=== PATIENT | male | born 1935 | race African-American/Black ===

== ENCOUNTER 2023-11-28 12:33 | Emergency (ER) | payer OTHER ==
[2023-11-28 12:43] VITALS: BP 147/97; PULSE 74; RESP 16; TEMP 97.6; BMI 32.9
[2023-11-28] MEDS ORDERED: KETOROLAC TROMETHAMINE 30 MG/1 ML VIAL ONE (15:13)
[2023-11-28] MEDS: KETOROLAC TROMETHAMINE 30 MG/1 ML VIAL IM ONE (15:18)
[2023-11-28 17:00] LABS: BASO % 0.7 % (0-2.0); EOS % 3.7 % (0-4.5); HEMATOCRIT 37.8 % (35.4-49); HEMOGLOBIN 12.5 GM/dL (11.7-16.9); LYMPH % 32.2 % (8-40); MCH 27.9 pg (25.7-33.7); MCHC 33.2 g/dl (32.0-35.9); MEAN PLT VOLUME 8.3 fl (7.5-11.1); MONO % 9.8 % (3.8-10.2); NEUT % 53.6 % (42.8-82.8); PLATELET COUNT 159 10^3/uL (134-434); RDW 16.4 % (11.9-15.9); WHITE BLOOD COUNT 8.5 K/mm3 (4.0-10.0)
[2023-11-28 17:03] LABS: INR 1.43 (0.83-1.09); PROTHROMBIN TIME (PATIENT) 16.3 SEC (9.7-13.0)
[2023-11-28 17:05] LABS: ACTIVATED PTT 31.7 SECONDS (25.2-36.5)
== END 2023-11-28 18:09 | disposition home or self-care (01) ==
LOC: JER 12:33
PROC: 3E0233Z Introduction of Anti-inflammatory into Muscle, Percutaneous Approach (ICD-10-PCS; principal; 2023-11-28)
DX: S82.001A Unspecified fracture of right patella, initial encounter for closed fracture (principal); M25.461 Effusion, right knee; R06.02 Shortness of breath; W01.0XXA Fall on same level from slipping, tripping and stumbling without subsequent striking against object, initial encounter
CPT/HCPCS: 36415; 71046-TC-FY; 73562-TC-RT-FY; 84484; 85025; 85610; 85730; 99284-25

== ENCOUNTER 2023-11-30 21:46 | Emergency (ER) | payer OTHER ==
[2023-11-30] MEDS ORDERED: FACTOR XA,INACTIVATED - BOLUS 400 MG/40 ML VIAL IVPB ONE (22:36)
[2023-11-30] MEDS ORDERED: FACTOR XA,INACTIVATED-ZHZO 480 MG/48 ML VIAL IVPB ONE (23:02)
[2023-11-30 23:12] VITALS: TEMP 98.8; BMI 30.9
[2023-11-30] MEDS: LABETALOL HCL 5 MG/1 ML (100MG/20 ML VIAL) IVPUSH ONE (23:29)
[2023-11-30 23:31] LABS: BASO % 0.2 % (0-2.0); EOS % 0.1 % (0-4.5); HEMATOCRIT 34.9 % (35.4-49); HEMOGLOBIN 11.9 GM/dL (11.7-16.9); LYMPH % 10.3 % (8-40); MCH 27.9 pg (25.7-33.7); MEAN PLT VOLUME 8.5 fl (7.5-11.1); MONO % 3.2 % (3.8-10.2); NEUT % 86.2 % (42.8-82.8); PLATELET COUNT 180 10^3/uL (134-434); RBC 4.26 M/mm3 (4.00-5.60); RDW 16.2 % (11.9-15.9); WHITE BLOOD COUNT 8.7 K/mm3 (4.0-10.0)
[2023-11-30 23:38] LABS: INR 1.6 (0.83-1.09); PROTHROMBIN TIME (PATIENT) 18.2 SEC (9.7-13.0)
[2023-11-30 23:40] LABS: ACTIVATED PTT 31.7 SECONDS (25.2-36.5)
[2023-11-30] MEDS: SODIUM CHLORIDE 1,000 ML IV SCH (23:45)
[2023-11-30] MEDS: SODIUM CHLORIDE 50 ML IVPB ONE (23:45)
[2023-11-30 23:53] VITALS: RESP 20
[2023-11-30] MEDS ORDERED: LABETALOL HCL 20 MG/4 ML VIAL ONE (23:59)
[2023-12-01] MEDS: LABETALOL HCL 5 MG/1 ML (100MG/20 ML VIAL) IVPUSH ONE (00:08)
[2023-12-01 00:09] LABS: POTASSIUM 4.7 mmol/L (3.5-5.1)
[2023-12-01 00:10] LABS: CALCIUM 8.9 mg/dL (8.5-10.1)
[2023-12-01 00:11] LABS: ALBUMIN 3.2 g/dl (3.4-5.0)
[2023-12-01 00:14] LABS: CREATININE 2.1 mg/dL (0.55-1.3)
[2023-12-01 00:16] LABS: TOT PROT 6.4 g/dl (6.4-8.2)
[2023-12-01 00:27] VITALS: BP 157/95; PULSE 111
[2023-12-01 00:30] LABS: BLOOD UREA NITROGEN 21.8 mg/dL (7-18)
[2023-12-01] MEDS ORDERED: SODIUM CHLORIDE 50 ML IVPB ONE (00:37)
== END 2023-12-01 00:28 | disposition short-term general hospital (02) ==
LOC: JER 21:46
PROC: 3E033GC Introduction of Other Therapeutic Substance into Peripheral Vein, Percutaneous Approach (ICD-10-PCS; principal; 2023-11-30)
DX: I63.89 Other cerebral infarction (principal); R29.708 NIHSS score 8; R32 Unspecified urinary incontinence; R41.82 Altered mental status, unspecified; I10 Essential (primary) hypertension; Z20.822 Contact with and (suspected) exposure to COVID-19
CPT/HCPCS: 0241U-QW; 36415; 70450-TC; 71045-TC-FY; 80053; 80061; 82550; 82962; 83036; 84484; 85025; 85610; 85730; 86850; 86900; 86901; 93005; 93010; 99291

== ENCOUNTER 2023-12-14 14:44 | Emergency (ER) | payer OTHER ==
[2023-12-14] MEDS ORDERED: RAPID SEQUENCE INTUBATION KIT NR ONE (14:52)
[2023-12-14] MEDS ORDERED: ALBUTEROL SO4 2.5/IPRATROPIUM 0.5 INH SOL 3 ML VIAL.NEB. NEB ONE (14:53)
[2023-12-14] MEDS ORDERED: ROCURONIUM BROMIDE 50 MG/5 ML VIAL ONE (14:54)
[2023-12-14] MEDS ORDERED: KETAMINE HCL 200 MG/20 ML VIAL ONE (14:54)
[2023-12-14] MEDS: SODIUM CHLORIDE 1,000 ML IV STA (15:00)
[2023-12-14] MEDS: KETAMINE HCL 200 MG/20 ML VIAL IVPUSH ONE (15:06)
[2023-12-14] MEDS: ROCURONIUM BROMIDE 50 MG/5 ML VIAL IVPUSH ONE (15:07)
[2023-12-14] MEDS: ALBUTEROL SO4 2.5/IPRATROPIUM 0.5 INH SOL 3 ML VIAL.NEB. NEB SCH (15:20)
[2023-12-14] MEDS ORDERED: NOREPINEPHRINE 0.9 % NACL 8 MG/250 ML BAG IVPB ONE (15:32)
[2023-12-14] MEDS: NOREPINEPHRINE BITARTRATE 16,000 MCG in SODIUM CHLORIDE 484 ML IV SCH (15:35)
[2023-12-14] MEDS: VASopressin 40 UNITS/100 ML BAG IV SCH (15:38)
[2023-12-14] MEDS ORDERED: VASopressin 20 UNITS/ML VIAL IV ONE ×2 (15:45→15:47)
[2023-12-14 16:12] VITALS: BMI 30.9
[2023-12-14 17:55] LABS: HEMOGLOBIN 9.3 GM/dL (11.7-16.9); MCH 27.3 pg (25.7-33.7); MCHC 33.1 g/dl (32.0-35.9); MEAN CELL VOLUME 82.4 fl (80-96); MEAN PLT VOLUME 8.1 fl (7.5-11.1); PLATELET COUNT 192 10^3/uL (134-434); RBC 3.39 M/mm3 (4.00-5.60); RDW 16.5 % (11.9-15.9); WHITE BLOOD COUNT 15.2 K/mm3 (4.0-10.0)
[2023-12-14 18:08] LABS: INR 1.22 (0.83-1.09)
[2023-12-14 18:11] LABS: ACTIVATED PTT 36.2 SECONDS (25.2-36.5)
[2023-12-14 18:17] LABS: POTASSIUM 4.5 mmol/L (3.5-5.1)
[2023-12-14 18:18] LABS: CALCIUM 7.7 mg/dL (8.5-10.1)
[2023-12-14 18:19] LABS: BLOOD UREA NITROGEN 39.9 mg/dL (7-18); MAGNESIUM 2.1 mg/dL (1.8-2.4)
[2023-12-14 18:22] LABS: CREATININE 1.1 mg/dL (0.55-1.3)
[2023-12-14 18:25] LABS: BILIRUBIN,TOTAL 1.4 mg/dL (0.2-1)
[2023-12-14 18:32] LABS: TOT PROT 4.4 g/dl (6.4-8.2)
[2023-12-14 18:34] LABS: ANISOCYTOSIS 0; MACROCYTOSIS 0; PLATELET ESTIMATE ADEQUATE
[2023-12-14 18:35] LABS: EPI CELLS 4 /uL (0-25.1); HYALINE CASTS 0 /uL (0-3.1); PH,URINE 5.5 (5.0-8.0); URINE APPEARANCE CLOUDY; URINE BACTERIA >9,000 /uL (0-1359); URINE BILIRUBIN NEGATIVE (NEGATIVE); URINE COLOR DK YELLOW; URINE GLUCOSE (UA) NEGATIVE (NEGATIVE); URINE KETONE NEGATIVE (NEGATIVE); URINE LEUK ESTERASE 3+ (NEGATIVE); URINE NITRITE NEGATIVE (NEGATIVE); URINE PROTEIN 1+ (NEGATIVE); URINE WBC 1283 /uL (0-25.8)
[2023-12-14 18:43] LABS: URINE RBC 15 /uL (0-23.9)
[2023-12-14] MEDS: FENTANYL IVPB 500 MCG/100 ML BAG IVPB SCH (19:00)
[2023-12-14] MEDS: MIDAZOLAM IN 0.9 % SOD.CHLORID 100 MG/100 ML PLAST..BAG IVPB SCH (19:01)
[2023-12-14] MEDS ORDERED: PIPERACILLIN/TAZOB 4.5 GM 4.5 GM/100 ML BAG IVPB ONE (19:36)
[2023-12-14] MEDS: PIPERACILLIN/TAZOB 4.5 GM 4.5 GM in DEXTROSE 5%-WATER 100 ML IVPB ONE (19:40)
[2023-12-14] MEDS ORDERED: NOREPINEPHRINE BITARTRATE/D5W 8 MG/250 ML BAG IVPB ONE (20:38)
[2023-12-14] MEDS: NOREPINEPHRINE 0.9 % NACL 8 MG/250 ML BAG IVPB SCH (20:47)
[2023-12-14] MEDS: VANCOMYCIN 1,000 MG in DEXTROSE 5%-WATER - 250 ML IVPB ONE (20:47)
[2023-12-14 21:33] LABS: ALLENS TEST POSITIVE; ARTERIAL BLD GAS O2 SATURATION 99.9 % (95-98); ARTERIAL BLOOD GAS BASE EXCESS -0.7 mmol/L (-2-2); ARTERIAL BLOOD GAS PO2 498.5 mmHg (80-100); ARTERIAL BLOOD GAS pH 7.571 (7.350-7.450)
[2023-12-14 21:34] LABS: VENT MODE AC; VENT RATE 20
[2023-12-14] MEDS ORDERED: VANCOMYCIN 1 GRAM (PRE-DOCKED) 1,000 MG/250 ML BAG IVPB ONE (22:29)
[2023-12-14 22:43] VITALS: PULSE 58
[2023-12-15] MEDS: FENTANYL IVPB 500 MCG/100 ML BAG IVPB SCH (00:10)
[2023-12-15 00:41] VITALS: BP 114/74; RESP 20; TEMP 98
== END 2023-12-15 01:27 | disposition short-term general hospital (02) ==
LOC: JER 14:44 → UNDOADMOB 16:27 → JERBED 16:27 → JICU 19:32 → JERBED 20:34
PROC: 0BH17EZ Insertion of Endotracheal Airway into Trachea, Via Natural or Artificial Opening (ICD-10-PCS; principal; 2023-12-14)
PROC: 3E03329 Introduction of Other Anti-infective into Peripheral Vein, Percutaneous Approach (ICD-10-PCS; 2023-12-14)
PROC: 3E033GC Introduction of Other Therapeutic Substance into Peripheral Vein, Percutaneous Approach (ICD-10-PCS; 2023-12-14)
PROC: 3E033GC Introduction of Other Therapeutic Substance into Peripheral Vein, Percutaneous Approach (ICD-10-PCS; 2023-12-14)
PROC: 3E0337Z Introduction of Electrolytic and Water Balance Substance into Peripheral Vein, Percutaneous Approach (ICD-10-PCS; 2023-12-14)
DX: R06.03 Acute respiratory distress (principal)
CPT/HCPCS: 0241U-QW; 36415; 36600; 70450-TC; 71045-TC-FY; 80053; 81003; 82803; 82962; 83605; 83735; 84484; 85025; 85610; 85730; 86850; 86900; 86901; 87040; 93005; 93010; 99285-25; J3490

== ENCOUNTER 2023-12-20 11:40 | Inpatient (IN) | payer OTHER ==
[2023-12-20 15:01] LABS: POTASSIUM 4.5 mmol/L (3.5-5.1)
[2023-12-20 15:03] LABS: ALBUMIN 2.2 g/dl (3.4-5.0); BLOOD UREA NITROGEN 52.1 mg/dL (7-18); CALCIUM 8.5 mg/dL (8.5-10.1)
[2023-12-20 15:06] LABS: CREATININE 1.5 mg/dL (0.55-1.3)
[2023-12-20 15:08] LABS: BILIRUBIN,TOTAL 1.1 mg/dL (0.2-1); TOT PROT 5.2 g/dl (6.4-8.2)
[2023-12-20 15:32] LABS: VENOUS BASE EXCESS -1.3 mmol/L (-2-2); VENOUS O2 SATURATION 48.1 % (70-80); VENOUS PCO2 40.2 mmHg (38-52); VENOUS PH 7.387 (7.310-7.410)
[2023-12-20 15:34] LABS: BASO % 0.3 % (0-2.0); EOS % 2.1 % (0-4.5); HEMOGLOBIN 9.3 GM/dL (11.7-16.9); LYMPH % 11.6 % (8-40); MCHC 33.4 g/dl (32.0-35.9); MEAN PLT VOLUME 9.5 fl (7.5-11.1); MONO % 6.2 % (3.8-10.2); NEUT % 79.8 % (42.8-82.8); PLATELET COUNT 181 10^3/uL (134-434); RBC 3.33 M/mm3 (4.00-5.60); RDW 17.4 % (11.9-15.9); WHITE BLOOD COUNT 10.6 K/mm3 (4.0-10.0)
[2023-12-20 15:41] LABS: INR 1.24 (0.83-1.09); PROTHROMBIN TIME (PATIENT) 14.2 SEC (9.7-13.0)
[2023-12-20] MEDS ORDERED: PIPERACILLIN/TAZOB 4.5 GM 4.5 GM/100 ML BAG IVPB ONE (19:23)
[2023-12-20] MEDS: PIPERACILLIN/TAZOB 4.5 GM 4.5 GM in DEXTROSE 5%-WATER 100 ML IVPB ONE (19:30)
[2023-12-20] MEDS: SODIUM CHLORIDE 0.9% 500 ML INFUS.BAG IV ONE (19:30)
[2023-12-20] MEDS: VANCOMYCIN 1,000 MG in DEXTROSE 5%-WATER - 250 ML IVPB ONE (20:14)
[2023-12-20] MEDS ORDERED: AZITHROMYCIN IVPB 500 MG/250 ML BAG IVPB ONE (20:16)
[2023-12-20] MEDS: AZITHROMYCIN IVPB 500 MG in DEXTROSE 5%-WATER - 250 ML IVPB ONE (20:33)
[2023-12-20] MEDS ORDERED: VANCOMYCIN 1 GRAM (PRE-DOCKED) 1,000 MG/250 ML BAG IVPB ONE (21:02)
[2023-12-20] MEDS ORDERED: ALBUTEROL SO4 2.5/IPRATROPIUM 0.5 INH SOL 3 ML VIAL.NEB. NEB ONE (23:15)
[2023-12-20] MEDS: ALBUTEROL SO4 2.5/IPRATROPIUM 0.5 INH SOL 3 ML VIAL.NEB. NEB ONE (23:19)
[2023-12-21 00:47] VITALS: BMI 32.8
[2023-12-21] MEDS: SODIUM CHLORIDE 1,000 ML IV SCH (01:13)
[2023-12-21] MEDS: PANTOPRAZOLE SODIUM 40 MG VIAL IVPUSH SCH (09:52)
[2023-12-21 14:26] LABS: BASO % 0.2 % (0-2.0); EOS % 1.8 % (0-4.5); HEMATOCRIT 25.5 % (35.4-49); HEMOGLOBIN 8.6 GM/dL (11.7-16.9); LYMPH % 10.6 % (8-40); MCH 28.1 pg (25.7-33.7); MCHC 33.6 g/dl (32.0-35.9); MEAN CELL VOLUME 83.7 fl (80-96); MEAN PLT VOLUME 8.3 fl (7.5-11.1); MONO % 5.7 % (3.8-10.2); NEUT % 81.7 % (42.8-82.8); PLATELET COUNT 147 10^3/uL (134-434); RBC 3.05 M/mm3 (4.00-5.60); RDW 17.5 % (11.9-15.9); WHITE BLOOD COUNT 10.7 K/mm3 (4.0-10.0)
[2023-12-21 15:01] LABS: POTASSIUM 4.3 mmol/L (3.5-5.1)
[2023-12-21 15:02] LABS: CALCIUM 8.4 mg/dL (8.5-10.1)
[2023-12-21 15:03] LABS: BLOOD UREA NITROGEN 45.4 mg/dL (7-18)
[2023-12-21 15:06] LABS: CREATININE 1.5 mg/dL (0.55-1.3)
[2023-12-21] MEDS: CEFTRIAXONE 1 GM in DEXTROSE 5%-WATER - 50 ML IVPB SCH (16:48)
[2023-12-21 18:26] LABS: ARTERIAL BLD GAS O2 SATURATION 99.3 % (95-98); ARTERIAL BLOOD GAS BASE EXCESS -3.2 mmol/L (-2-2); ARTERIAL BLOOD GAS PO2 192.6 mmHg (80-100); ARTERIAL BLOOD GAS pH 7.409 (7.350-7.450)
[2023-12-21 18:29] LABS: ALLENS TEST POSITIVE
[2023-12-23 07:54] LABS: CALCIUM 8.6 mg/dL (8.5-10.1)
[2023-12-23 07:55] LABS: BLOOD UREA NITROGEN 41.8 mg/dL (7-18)
[2023-12-23 07:58] LABS: CREATININE 1.3 mg/dL (0.55-1.3)
[2023-12-24] MEDS: amLODIPine BESYLATE 5 MG TABLET (FP) GT SCH (10:01)
[2023-12-24] MEDS: ALBUTEROL SO4 2.5/IPRATROPIUM 0.5 INH SOL 3 ML VIAL.NEB. NEB PRN (11:28)
[2023-12-24] MEDS: SCOPOLAMINE HYDROBROMIDE 1 PATCH PATCH.TD72 TD SCH (13:18)
[2023-12-24] MEDS: SODIUM ZIRCONIUM CYCLOSILICATE (LOKELMA) 5 GM PACKET PO SCH (13:19)
[2023-12-25 09:04] LABS: POTASSIUM 3.9 mmol/L (3.5-5.1)
[2023-12-25 09:06] LABS: BLOOD UREA NITROGEN 35.4 mg/dL (7-18); CALCIUM 8.5 mg/dL (8.5-10.1)
[2023-12-25 09:11] LABS: CREATININE 1.5 mg/dL (0.55-1.3)
[2023-12-25] MEDS: METOCLOPRAMIDE HCL 10 MG TABLET (FP) PO SCH (18:27)
[2023-12-26 08:27] LABS: BASO % 0.3 % (0-2.0); EOS % 4.1 % (0-4.5); HEMATOCRIT 25.5 % (35.4-49); HEMOGLOBIN 8.6 GM/dL (11.7-16.9); LYMPH % 15.2 % (8-40); MCH 28.3 pg (25.7-33.7); MCHC 33.6 g/dl (32.0-35.9); MEAN CELL VOLUME 84.5 fl (80-96); MEAN PLT VOLUME 8.6 fl (7.5-11.1); MONO % 8.4 % (3.8-10.2); PLATELET COUNT 165 10^3/uL (134-434); RBC 3.02 M/mm3 (4.00-5.60); RDW 18.9 % (11.9-15.9); WHITE BLOOD COUNT 8.2 K/mm3 (4.0-10.0)
[2023-12-26 08:39] LABS: POTASSIUM 4.3 mmol/L (3.5-5.1)
[2023-12-26 08:44] LABS: BLOOD UREA NITROGEN 33.6 mg/dL (7-18); CALCIUM 8.6 mg/dL (8.5-10.1)
[2023-12-26 08:47] LABS: CREATININE 1.4 mg/dL (0.55-1.3)
[2023-12-26] MEDS: amLODIPine BESYLATE 10 MG TABLET (FP) GT SCH (10:59)
[2023-12-30] MEDS: FAMOTIDINE 40 MG/5 ML ORAL SUSPENSION GT SCH (22:25)
[2023-12-31 08:12] LABS: POTASSIUM 4.3 mmol/L (3.5-5.1)
[2023-12-31 08:16] LABS: BLOOD UREA NITROGEN 32.7 mg/dL (7-18); CALCIUM 9.1 mg/dL (8.5-10.1)
[2023-12-31 08:19] LABS: CREATININE 1.5 mg/dL (0.55-1.3)
[2023-12-31] MEDS: FAMOTIDINE 20 MG/2.5 ML ORAL LIQUID GT SCH (10:19)
[2024-01-01] MEDS: FAMOTIDINE 20 MG/2.5 ML ORAL LIQUID GT SCH (22:40)
[2024-01-02] MEDS: METOCLOPRAMIDE HCL 10 MG TABLET (FP) PO SCH (06:30)
[2024-01-02 09:20] LABS: POTASSIUM 4.4 mmol/L (3.5-5.1)
[2024-01-02 09:22] LABS: CALCIUM 8.7 mg/dL (8.5-10.1)
[2024-01-02 09:26] LABS: CREATININE 1.2 mg/dL (0.55-1.3)
[2024-01-02] MEDS: amLODIPine BESYLATE 10 MG TABLET (FP) GT SCH (10:19)
[2024-01-02] MEDS: MULTIVIT-MINERALS ORAL LIQUID PO SCH (10:20)
[2024-01-02] MEDS: SCOPOLAMINE HYDROBROMIDE 1 PATCH PATCH.TD72 TD SCH (13:08)
[2024-01-03 10:12] LABS: HEMATOCRIT 24.4 % (35.4-49); HEMOGLOBIN 8.1 GM/dL (11.7-16.9); MCH 28.4 pg (25.7-33.7); MCHC 33.3 g/dl (32.0-35.9); MEAN CELL VOLUME 85.2 fl (80-96); MEAN PLT VOLUME 9.1 fl (7.5-11.1); PLATELET COUNT 173 10^3/uL (134-434); RBC 2.86 M/mm3 (4.00-5.60); RDW 18.7 % (11.9-15.9); WHITE BLOOD COUNT 5.5 K/mm3 (4.0-10.0)
[2024-01-03 10:20] LABS: POTASSIUM 4.6 mmol/L (3.5-5.1)
[2024-01-03 10:21] LABS: CALCIUM 8.7 mg/dL (8.5-10.1)
[2024-01-03 10:22] LABS: BLOOD UREA NITROGEN 25.9 mg/dL (7-18)
[2024-01-03 10:25] LABS: CREATININE 1.1 mg/dL (0.55-1.3)
[2024-01-05] MEDS: methylPREDNISolone NA SUCC 40 MG/1 ML VIAL IVPUSH ONE ×2 (12:53→18:51)
[2024-01-05] MEDS: ALBUTEROL SO4 2.5/IPRATROPIUM 0.5 INH SOL 3 ML VIAL.NEB. NEB PRN (13:00)
[2024-01-05] MEDS: predniSONE 20 MG TABLET (UD) GT ONE (14:20)
[2024-01-05] MEDS ORDERED: ACETAMINOPHEN 1000 MG/100 ML BAG IVPB PRN (18:42)
[2024-01-05] MEDS: FUROSEMIDE 40 MG/4 ML INJECTABLE VIAL IVPUSH ONE (18:51)
[2024-01-05] MEDS: HEPARIN NA (PORCINE) 5,000 UNITS/ML 1ML VIAL SQ SCH (21:30)
[2024-01-05] MEDS: methylPREDNISolone NA SUCC 40 MG/1 ML VIAL IVPUSH SCH (22:16)
[2024-01-06] MEDS: FUROSEMIDE 40 MG/4 ML INJECTABLE VIAL IVPUSH ONE (07:14)
[2024-01-06 08:31] LABS: BASO % 0.1 % (0-2.0); HEMOGLOBIN 8.7 GM/dL (11.7-16.9); LYMPH % 12.8 % (8-40); MCH 27.8 pg (25.7-33.7); MCHC 33.3 g/dl (32.0-35.9); MEAN CELL VOLUME 83.4 fl (80-96); MEAN PLT VOLUME 8.6 fl (7.5-11.1); MONO % 0.8 % (3.8-10.2); NEUT % 86.3 % (42.8-82.8); PLATELET COUNT 250 10^3/uL (134-434); RBC 3.12 M/mm3 (4.00-5.60); RDW 18.6 % (11.9-15.9); WHITE BLOOD COUNT 6.3 K/mm3 (4.0-10.0)
[2024-01-06 08:47] LABS: POTASSIUM 4.4 mmol/L (3.5-5.1)
[2024-01-06 08:50] LABS: CALCIUM 8.9 mg/dL (8.5-10.1)
[2024-01-06 08:51] LABS: ALBUMIN 2.6 g/dl (3.4-5.0); BLOOD UREA NITROGEN 32.1 mg/dL (7-18); MAGNESIUM 1.9 mg/dL (1.8-2.4)
[2024-01-06 08:54] LABS: CREATININE 1.4 mg/dL (0.55-1.3)
[2024-01-06 08:56] LABS: BILIRUBIN,TOTAL 1.8 mg/dL (0.2-1); TOT PROT 6.2 g/dl (6.4-8.2)
[2024-01-06 08:58] LABS: N-TERMINAL BNP 5989.6 pg/ml (5-450)
[2024-01-06] MEDS: HEPARIN NA (PORCINE) 5,000 UNITS/ML 1ML VIAL SQ SCH (10:15)
[2024-01-06] MEDS: methylPREDNISolone NA SUCC 40 MG/1 ML VIAL IVPUSH SCH (21:34)
[2024-01-07] MEDS: FUROSEMIDE 40 MG/4 ML INJECTABLE VIAL IVPUSH SCH (09:46)
[2024-01-07 15:51] VITALS: RESP 18
[2024-01-07] MEDS: INSULIN ASPART SLIDING SCALE (NOVOLOG) 1 VIAL SQ SCH (17:59)
[2024-01-07 21:29] VITALS: TEMP 96.8
[2024-01-08 05:37] VITALS: BP 119/56; PULSE 115
[2024-01-08 14:04] LABS: HEMATOCRIT 29.5 % (35.4-49); HEMOGLOBIN 9.7 GM/dL (11.7-16.9); LYMPH % 9.9 % (8-40); MCH 27.3 pg (25.7-33.7); MEAN CELL VOLUME 82.8 fl (80-96); MEAN PLT VOLUME 8.7 fl (7.5-11.1); MONO % 5.5 % (3.8-10.2); NEUT % 84.6 % (42.8-82.8); PLATELET COUNT 391 10^3/uL (134-434); RBC 3.56 M/mm3 (4.00-5.60); RDW 18.3 % (11.9-15.9); WHITE BLOOD COUNT 11.1 K/mm3 (4.0-10.0)
[2024-01-09] MEDS ORDERED: methylPREDNISolone NA SUCC 40 MG/1 ML VIAL IVPUSH SCH (10:00)
== END 2024-01-08 13:03 | DRG 64 ==
LOC: JER 11:40 → JERBED 19:37 → J4W 12-21 00:06 → J8W 01-01 18:19
PROVIDERS: ADMIT Family Medicine; ATTEND Student in an Organized Health Care Education/Training Program
DX: I61.5 Nontraumatic intracerebral hemorrhage, intraventricular (principal); J18.9 Pneumonia, unspecified organism; J96.20 Acute and chronic respiratory failure, unspecified whether with hypoxia or hypercapnia; J90 Pleural effusion, not elsewhere classified; E87.0 Hyperosmolality and hypernatremia; K94.23 Gastrostomy malfunction; I10 Essential (primary) hypertension; E11.9 Type 2 diabetes mellitus without complications; I48.91 Unspecified atrial fibrillation; Y83.9 Surgical procedure, unspecified as the cause of abnormal reaction of the patient, or of later complication, without mention of misadventure at the time of the procedure; E78.5 Hyperlipidemia, unspecified
CPT/HCPCS: 0241U-QW; 36415; 36600; 70450-TC; 71045-TC-FY; 71275-TC; 74177-TC; 80048; 80053; 82803; 82962; 83735; 83880; 84484; 85025; 85027; 85610; 85730; 87635; 93005; 93010; 94640; 97116-GP; 97162-GP; 99285-25; J1644; Q9967